=== PATIENT | male | born 1935 | race Caucasian/White ===

== ENCOUNTER → 2016-08-18 | Outpatient (CLI) | payer MEDICARE, BC | LOC: ZCOL.LAB 16:38 | DX: J32.4 Chronic pansinusitis (principal) ==

== ENCOUNTER 2019-10-13 06:31 | Day surgery (SDC) | payer MEDICARE, BC ==
[~2019-10-13] VITALS: Ht 182.9 cm; Wt 84.1 kg
[2019-10-13] MEDS ORDERED: PRIL40 PO (07:51)
[2019-10-13] MEDS ORDERED: TOPROL XL 25MG25 MG PO (07:51)
[2019-10-13] MEDS ORDERED: ZOCOR 40MG40 MG PO (07:52)
[2019-10-13] MEDS ORDERED: COZAAR100 MG PO (07:52)
[2019-10-13 08:14] VITALS: BP 134/81; PULSE 65; TEMP 98.1
[2019-10-13 08:20] LABS: HEMOGLOBIN 11.2 g/dl (13.5-18.0); MEAN CELL VOLUME 90 fl (80.0-100.0); MEAN CORPUSCULAR HEMOGLOBIN 29 pg (27.0-31.0); MEAN CORPUSCULAR HGB CONC 32 g/dl (33.0-37.0); MEAN PLATELET VOLUME 11.6 fl (7.4-10.4); PLATELET COUNT 185 K/mm3 (130-400); RED BLOOD COUNT 3.92 M/mm3 (4.20-5.60); REDCELL DISTRIBUTION WIDTH-CV 13.2 % (11.5-14.5)
[2019-10-13 08:21] LABS: HEMATOCRIT 35.1 % (42.0-52.0)
[2019-10-13 08:23] LABS: INR 1.2 (0.8-3.0); PROTHROMBIN TIME 13.3 SECONDS (9.7-12.8)
[2019-10-13 08:27] LABS: CREATININE, serum 0.9 (0.66-1.25)
[2019-10-13 08:28] LABS: CALCIUM 8.9 mg/dL (8.4-10.2); POTASSIUM 4.2 mmol/L (3.4-5.0)
[2019-10-13 08:40] VITALS: BP 138/87; PULSE 65
--- NOTE | 2019-10-13 08:41 | NUR ---
SEE MERGE DOCUMENTATION FOR MEDICATION ADMINISTRATION AND INTRA/POST PROCEDURE SEDATION ASSESSMENTS.
[2019-10-13] MEDS ORDERED: CEPHALEXIN500 M1 PO (09:34)
[2019-10-13 09:45] VITALS: BP 157/714; PULSE 60; TEMP 98.1
--- NOTE | 2019-10-13 09:45 | NUR ---
Back from [employer]. Dressing to left upper chest CD&I. VSS. Denies pain and needs at this time
[2019-10-13 10:15] VITALS: BP 153/75; PULSE 59; TEMP 98.1
[2019-10-13 11:15] VITALS: BP 160/68; PULSE 61; TEMP 98.1
[2019-10-13 11:57] VITALS: BP 165/70; PULSE 61; TEMP 98.1
--- NOTE | 2019-10-13 11:57 | NUR ---
INT discontinued intact. Discharge instructions given
--- NOTE | 2019-10-13 12:15 | NUR ---
Transferred to private car by [email or web address]
== END 2019-10-13 12:15 | disposition home or self-care (01) ==
LOC: COL.CAR 06:31
PROVIDERS: Internal Medicine Cardiovascular Disease
DX: Z45.010 Encounter for checking and testing of cardiac pacemaker pulse generator [battery] (principal); I08.3 Combined rheumatic disorders of mitral, aortic and tricuspid valves
CPT/HCPCS: J0690; J2250; J3010; J7030